=== PATIENT | male | born 1930 | race Caucasian/White ===

== ENCOUNTER 2016-09-23 11:01 | Day surgery (SDC) | payer MEDICARE ==
[2016-09-19 11:13] LABS: BASOPHILS 0.1 %; BASOPHILS ABSOLUTE 0.01 10/3/uL (0.0-0.16); EOSINOPHILS 1.8 %; EOSINOPHILS ABSOLUTE 0.16 10/3/uL (0.0-0.53); HEMATOCRIT 36.2 % (40.0-51.0); HEMOGLOBIN 12.7 g/dL (13.6-17.8); IMMATURE GRANULOCYTES 0.3 %; IMMATURE GRANULOCYTES ABSOLUTE 0.03 10/3/uL (0.0-0.11); LYMPHOCYTES 22.2 %; LYMPHOCYTES ABSOLUTE 1.93 10/3/uL (0.67-4.30); MEAN CORPUS HGB CONC 35.1 g/dL (32.0-36.0); MEAN CORPUSCULAR HEMOGLOB 32.4 pg (26.0-34.0); MEAN PLATELET VOLUME 11.8 fL (9.2-13.0); MONOCYTES 10.6 %; MONOCYTES ABSOLUTE 0.92 10/3/uL (0.21-1.20); NEUTROPHILS ABSOLUTE 5.65 10/3/uL (2.02-8.40); RBC DISTRIBUTION WIDTH 13.6 % (12.0-16.0); RED CELL COUNT 3.92 10/6/uL (4.7-6.1); WHITE BLOOD CELLS 8.7 10/3/uL (4.5-10.5)
[2016-09-19 11:21] LABS: MANUAL DIFF NO %; MEAN CORPUSCULAR VOLUME 92.3 fL (80-100); PLATELET COUNT 183 10/3/uL (150-400)
[2016-09-19 11:29] LABS: BUN (BLOOD UREA NITROGEN) 34 MG/DL (6-23); CALCIUM, SERUM 9.2 MG/DL (8.5-10.4); CHLORIDE, SERUM 107 MMOL/L (96-112); CO2 (CARBON DIOXIDE) 29 MMOL/L (24-34); CREATININE 1.74 MG/DL (0.70-1.30); GFR AFRICAN AMERICAN 40 ML/MIN (>=60); GFR NON AFRICAN AMERICAN 34 ML/MIN (>=60); GLUCOSE, SERUM 100 MG/DL (60-99); POTASSIUM, SERUM 4.2 MMOL/L (3.5-5.3); SODIUM, SERUM 142 MMOL/L (135-148)
--- NOTE | ~2016-09-23 | OP ---
Record Of Operation [facility] [address] [place] [address] NAME: RENETTA ANDERSON : [birth year] STATUS : [facility]#: [id number] AGE: 86 ADM/REG DATE : 09/23/16 MR#: [id number] REPORT SERV DATE: 09/23/16 DICTATED BY: RUSTY SCOTT III DATE: 09/23/16 REPORT STATUS : Draft TRANSCRIBED BY: MODL DATE: 09/23/16 DATE OF PROCEDURE: 09/23/2016 PROCEDURE: Cystoscopy, bilateral retrogrades. PREOPERATIVE DIAGNOSIS: Hematuria. POSTOPERATIVE DIAGNOSIS: Hematuria. ANESTHESIA: General. DESCRIPTION OF PROCEDURE: Following induction of adequate general anesthesia, the patient was placed in the dorsal lithotomy position, prepped and draped in a sterile fashion. The urethra was normal. The prostate had regrown in the midline, it was moderately vascular, there was no bleeding, and the bladder neck itself was open. There were no mucosal lesions in the prostate. The bladder was entered. It was mildly trabeculated. The orifices were in A position with clear efflux. There were no tumors. There was no erythema. Bilateral retrogrades were normal. The patient had expressed the fact that he did not want a prostate surgery and so I did not resect the regrowth of the prostate. He will start his Pradaxa back in 36 to 48 hours. He has started Proscar and hopefully that will help with any prostate bleeding. OB/MODL Rusty Scott III, M.D. / [id number] CC: Luana Durbin III, M.D.
[~2016-09-23 11:01] MED LIST: ALEVE220 MG PO; ASAB PO; ATEN50 PO; BUSPAR10 PO; BYSTOLIC5 MG PO; CARDCD180 PO; CHLOR-TRIMETON4 MG PO; CLARIT10 PO; COMBIVENT RESPIM4 GM INH; COZAAR100 MG PO; CRESTOR10 PO; EXFORGE1 TA1 PO; IRON TAB PO; KLOR-CON M2020 MEQ PO; L40 PO; L80 PO; LOP50 PO; PRADAXA150 MG PO; PROTONIX PO; SLEEP AID25 MG PO; STOOL SOFTEN240 MG PO; ZOCOR20 PO
== END 2016-09-23 17:26 | disposition home or self-care (01) ==
LOC: SDC 11:01
PROVIDERS: Urology
PROC: BT14ZZZ Fluoroscopy of Kidneys, Ureters and Bladder (ICD-10-PCS; principal; 2016-09-23 13:15)
DX: R31.9 Hematuria, unspecified (principal); I25.10 Atherosclerotic heart disease of native coronary artery without angina pectoris; I48.91 Unspecified atrial fibrillation; I25.2 Old myocardial infarction; J44.9 Chronic obstructive pulmonary disease, unspecified; J45.909 Unspecified asthma, uncomplicated; K57.92 Diverticulitis of intestine, part unspecified, without perforation or abscess without bleeding; D64.9 Anemia, unspecified; Z95.1 Presence of aortocoronary bypass graft; Z95.5 Presence of coronary angioplasty implant and graft; Z95.0 Presence of cardiac pacemaker; Z96.1 Presence of intraocular lens; Z98.41 Cataract extraction status, right eye; Z98.42 Cataract extraction status, left eye; Z79.1 Long term (current) use of non-steroidal anti-inflammatories (NSAID); Z90.49 Acquired absence of other specified parts of digestive tract; Z90.79 Acquired absence of other genital organ(s); Z87.891 Personal history of nicotine dependence; Z79.01 Long term (current) use of anticoagulants; Z98.890 Other specified postprocedural states
CPT/HCPCS: 71020; 74420; 80048; 85025; 93005; J2370; J2405; J3010; Q9967